=== PATIENT | female | born 1945 | race Caucasian/White ===

== ENCOUNTER 2017-08-05 09:05 | Day surgery (SDC) | payer MEDICARE, OTHER ==
[~2017-08-05 09:05] MED LIST: LACTATED RINGERS 1,000 ML IV SCH
[2017-08-05] MEDS ORDERED: LIDOCAINE 1% 20 ML VIAL (10MG/ML) FOR IV START INTRADERMA ONE (09:22)
[2017-08-05 09:31] VITALS: RESP 16; TEMP 97.3
[2017-08-05] MEDS ORDERED: PROPOFOL 10 MG/ML 20 ML VIAL IV ONE (10:05)
--- NOTE | 2017-08-05 10:27 | P.PCN ---
Date of Procedure: 08/05/17 Procedure(s) Performed: BRIEF HISTORY: Patient is a 72-year-old pleasant white female, scheduled for an elective colonoscopy as a part of evaluation of intermittent rectal bleeding for the last few months duration. PROCEDURE PERFORMED: Colonoscopy with snare polypectomy. PREOPERATIVE DIAGNOSIS: Rectal bleeding of 6 months duration. IV sedation per Anesthesia. PROCEDURE: After informed consent was obtained, the patient, was brought into the endoscopy unit. IV sedation was administered by Anesthesia under continuous monitoring. Digital rectal examination was normal. Initially the Olympus CF- 160 flexible video colonoscope was then inserted in the rectum, gradually advanced into the cecum without any difficulty. Careful examination was performed as the scope was gradually being withdrawn. Ileocecal valve and the appendiceal orifice were visualized and appeared normal. Prep was excellent. Mucosa of the cecum, appeared normal. In the ascending colon there was a 1 cm broad-based polyp that was more by snare polypectomy. The rest of the ascending colon, transverse colon, descending colon, sigmoid colon, and rectum appeared normal. In the proximal rectum there was a 5-mm polyp removed by snare polypectomy. Scattered left-sided diverticulosis seen. Retroflexion was performed in the rectum and small internal hemorrhoids were seen. The patient tolerated the procedure well. IMPRESSION: 1 cm broad-based ascending colon polyp status post snare polypectomy 5 to proximal rectal polyp status post polypectomy Scattered sigmoid diverticulosis Small internal hemorrhoids RECOMMENDATIONS: Findings of this examination were discussed with the patient as well as her family. She was advised to be on a high-fiber diet. Fiber supplements on a regular basis. She will follow with the biopsy results. If the biopsy shows a tubular adenoma she can have a repeat coloscopy in 3-5 years.
[2017-08-05 11:01] VITALS: BP 165/78; PULSE 63
== END 2017-08-05 11:20 | disposition home or self-care (01) ==
LOC: ORWHC2ENDO 09:05
PROVIDERS: ATTEND Internal Medicine Gastroenterology
DX: D12.2 Benign neoplasm of ascending colon (principal); K62.1 Rectal polyp; K57.30 Diverticulosis of large intestine without perforation or abscess without bleeding; K64.8 Other hemorrhoids; Z79.899 Other long term (current) drug therapy; I10 Essential (primary) hypertension; E78.5 Hyperlipidemia, unspecified; M46.90 Unspecified inflammatory spondylopathy, site unspecified; Z79.891 Long term (current) use of opiate analgesic; Z91.040 Latex allergy status; Z91.048 Other nonmedicinal substance allergy status
CPT/HCPCS: 88305; 45385; J2704

== ENCOUNTER → 2018-05-25 | Outpatient (CLI) | payer MEDICARE, OTHER ==
[2018-05-25 14:03] VITALS: BP 160/74; PULSE 70; RESP 16; TEMP 98.2; BMI 28.3
--- NOTE | 2018-05-25 15:35 | P.BASOAP ---
Subjective Progress Note Date: 05/25/18 Principal diagnosis: Left lower quadrant pain Patient on our service. Fashion had previous lap band placement. She has done quite well overall with her weight loss post-banding. Patient has 10.5 mL in her band. Patient was last evaluated for her lap band in March 2014. She has excellent loss a small amount of weight since that time. She has a history of intermittent left lower quadrant pain. Seems to be increasing in frequency and severity. Looking back at my notes from 2013 she did describe some of that pain at that time. She has had no real significant workup. Denies fevers. No nausea or vomiting. Normal bowel habits. Recent colonoscopy by Dr. Baron was normal. No rectal bleeding or melena. No recent labs. Objective - Vital Signs Vital signs: Vital Signs Temp 98.2 F 05/25/18 13:59 Pulse 70 05/25/18 13:59 Resp 16 05/25/18 13:59 BP 160/74 05/25/18 13:59 Pulse Ox Intake & Output 05/24/18 05/25/18 05/25/18 18:59 06:59 18:59 Weight 70.307 kg - Exam Abdomen: Soft, mild left lower quadrant tenderness, no palpable hernia Assessment/Plan (1) Left lower quadrant abdominal pain of unknown etiology Narrative/Plan: Will check CAT scan and pelvis at this time. Patient's pain may be on the basis of scarring related to her previous panniculectomy. Further recommendations will follow. Keep band at 10.5 mL for now. Plan: Date: 05/25/18 Initial Weight: 122.47 kg Initial BMI: 49.4 Current Weight: 70.307 kg Current BMI: 28.3 Type of Surgery: Total Volume in Band: Previous Volume: Volume Removed: Volume Added: Band Size:
== END ==
LOC: BARWHC3 13:42
PROVIDERS: ATTEND Surgery
DX: R10.32 Left lower quadrant pain (principal); Z98.84 Bariatric surgery status
CPT/HCPCS: 99211

== ENCOUNTER → 2018-06-09 | Outpatient (CLI) | payer MEDICARE, OTHER ==
--- NOTE | 2018-06-11 07:52 | CT ---
EXAMINATION TYPE: CT abdomen pelvis w con DATE OF EXAM: 06/09/2018 COMPARISON: INDICATION: Left side abdominal pain DLP: 1022 mGycm, Automated exposure control for dose reduction was used. CONTRAST: 100 mL of Isovue 300. Study performed with Oral Contrast TECHNIQUE: Axial images were obtained from above the diaphragm to the pubic rami in the axial plane a t 5 mm thick sections. Reconstructed images are reviewed on the computer in the coronal plane. FINDINGS: Limited CT sections are obtained the lung bases. The lung bases are clear. CT ABDOMEN: LAP-BAND is present. Liver: Normal Spleen: Ill-defined hypodensities within the mid portion of the spleen. This is ill-defined and is es timated to measure 3 cm. This is not a typical simple cyst. Hypodensity in this area appears persiste nt on delayed images. Consider ultrasound for comparison. Pancreas: Normal Adrenal glands: There is some mild thickening of the left adrenal gland measuring 1.2 cm. The right a drenal gland appears normal. Gallbladder: Normal Kidneys: No masses are evident. No hydronephrosis is present. No cysts are present. Delayed images were obtained through the kidneys, which remain unremarkable. Aorta: Vascular calcification is within the aorta. Inferior vena cava: Normal. CT PELVIS: Loops of bowel within the abdomen and pelvis are normal. There are loops of bowel which are incom pletely distended or lack oral contrast limiting their evaluation. 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 Appendix: Normal as visualized. Urinary bladder: Normal. Genitourinary structures: Uterus is normal. Adnexal regions are clear. Osseous structures: No suspicious lytic or sclerotic lesions. Facet degenerative changes are within t he lower lumbar spine. IMPRESSIONS: 1. Ill-defined hypodensity within the liver which is nonspecific. Large complex hemangioma could be considered. However, and there is incomplete opacification with contrast. Consider additional evaluat ion with ultrasound of the abdomen. 2. Fusiform prominence mid abdominal aorta measuring 3.4 cm.
== END | disposition home or self-care (01) ==
LOC: RADCTMAIN 13:56
PROVIDERS: ATTEND Surgery
DX: R93.2 Abnormal findings on diagnostic imaging of liver and biliary tract (principal); R10.32 Left lower quadrant pain
CPT/HCPCS: 82565; 84520; 74177; 36415; Q9967

== ENCOUNTER → 2018-07-08 | Outpatient (CLI) | payer MEDICARE, OTHER ==
--- NOTE | 2018-07-08 13:13 | US ---
EXAMINATION TYPE: US abdomen limited DATE OF EXAM: 07/08/2018 COMPARISON: Correlation CT 06/09/2018 CLINICAL HISTORY: 73-year-old female D73.89 Spleen Lesion. LUQ pain, splenic lesion visualized on rec ent CT TECHNIQUE: Multiple sonographic images of the left upper quadrant are obtained. FINDINGS: EXAM MEASUREMENTS: Spleen: 10.7cm Left Kidney: 9.9 x 5.2 x 4.9 1. Spleen: heterogeneous isoechoic lesion = 4.1 x 3.6 x 4.2cm . There may be some posterior through t ransmission. 2. Left Kidney: no evidence of hydronephrosis IMPRESSION: 1. 4.2 cm round heterogeneous lesion of the spleen as seen on CT. Given subtle posterior through painting smission and heterogeneity on CT, a hemangioma is possible. 2. Consider 3-6 month follow-up CT to reassess.
== END | disposition home or self-care (01) ==
LOC: RADUSWWP 09:19
PROVIDERS: ATTEND Surgery
DX: D73.89 Other diseases of spleen (principal)
CPT/HCPCS: 76705

== ENCOUNTER → 2020-08-28 | Outpatient (CLI) | payer MEDICARE, OTHER ==
[2020-08-28 15:41] VITALS: BP 148/83; PULSE 75; RESP 16; TEMP 98.1; BMI 32.7
--- NOTE | 2020-08-28 16:28 | P.BASOAP ---
Subjective Progress Note Date: 08/28/20 Principal diagnosis: Morbid obesity Patient returns to the bariatric clinic for evaluation. Last seen May 2018. At that time was having left lower quadrant pain. She had a CAT scan and an ultrasound showing no definite etiology for her pain. She did have a 4.2 cm liver lesion that was thought to represent probable hemangioma. 3-6 month follow-up CAT scan was advised. Says her left lower quadrant pain has resolved. She thinks it may have been related to constipation. Since last visit patient has gained 20 pounds. No heartburn. Patient requesting a fill. States that previously she was unable to drink while eating but now she is able to. No dysphagia or vomiting. No reflux. Objective - Vital Signs Vital signs: Vital Signs Temp 98.1 F 08/28/20 15:37 Pulse 75 08/28/20 15:37 Resp 16 08/28/20 15:37 BP 148/83 08/28/20 15:37 Pulse Ox Intake & Output 08/27/20 08/28/20 08/28/20 18:59 06:59 18:59 Weight 81.193 kg - Exam Abdomen: Soft, nontender, nondistended Assessment/Plan (1) Morbid obesity Narrative/Plan: Patient requesting a lap band adjustment. Patient has 10.5 mL in the band currently. Her band was accessed sterilely. Most of the fluid is present. 0.5 mL added for a total of 11 mL. Patient tolerated liquids without difficulty following the adjustment. We'll try to see if the patient ever had her follow- up CAT scan performed. Plan: Date: 08/28/20 Initial Weight: 122.47 kg Initial BMI: 49.4 Current Weight: 81.193 kg Current BMI: 32.7 Type of Surgery: Total Volume in Band: Previous Volume: Volume Removed: Volume Added: Band Size:
== END ==
LOC: BARWHC3 15:08
PROVIDERS: ATTEND Surgery
DX: Z46.51 Encounter for fitting and adjustment of gastric lap band (principal); E66.01 Morbid (severe) obesity due to excess calories; F17.200 Nicotine dependence, unspecified, uncomplicated; Z68.32 Body mass index [BMI] 32.0-32.9, adult; Z98.84 Bariatric surgery status
CPT/HCPCS: 99212

== ENCOUNTER → 2020-09-13 | Outpatient (CLI) | payer MEDICARE, OTHER ==
[2020-09-13 12:49] LABS: African American GFR (CKD) >90 (>60 ml/min/1.73 sqM); Blood Urea Nitrogen 14 mg/dL (7-17); Non-African American GFR(CKD) 84 (>60 ml/min/1.73 sqM)
--- NOTE | 2020-09-13 14:45 | CT ---
EXAMINATION TYPE: CT abdomen pelvis w con DATE OF EXAM: 09/13/2020 HISTORY: Liver mass, prior abn CT CT DLP: 1196mGycm Automated Exposure Control for Dose Reduction was Utilized. CONTRAST: CT scan of the abdomen and pelvis is performed with IV Contrast, patient injected with 100 mL of Isov ue 300. COMPARISON: CT abdomen and pelvis June 09, 2018. Limited abdominal ultrasound July 08, 2018 FINDINGS: LUNG BASES: Calcification level of mitral valve redemonstrated LIVER/GB: Persistent subcentimeter lesion left hepatic lobe series 3 image 16, too small to further c haracterize presumed benign. PANCREAS: No significant abnormality is seen. SPLEEN: Persistent heterogeneous poorly defined slightly hypodense roughly 3.5 cm lesion in the splee n not significantly changed in size or appearance from CT 27 months earlier, etiology uncertain but l ack of significant growth makes benign etiology strongly favored. No significant change on delayed ph ase images. ADRENALS: Stable slight asymmetric thickening left adrenal gland favors benign hyperplasia. KIDNEYS: Symmetric cortical medullary uptake and excretion without hydronephrosis seen bilaterally. BOWEL: Oral contrast reaches level of the cecum. No suspicious small or large bowel dilatation. LAP-B AND device redemonstrated and stable in position just below diaphragm, slightly diminished phi angle noted from prior CT. Diverticula in the left and sigmoid colon redemonstrated. No CT evidence for acu te diverticulitis. UTERUS/ADNEXA: Anteverted uterus. LYMPH NODES: No greater than 1cm abdominal or pelvic lymph nodes are appreciated. OSSEOUS STRUCTURES: Moderate axial joint space loss in both hips with mild to moderate acetabular spu rring. OTHER: Moderate to borderline severe calcified plaque of the aorta extends into branch vessels. No gr eater than 3.0 cm AAA IMPRESSION: As above. No new or acute findings evident.
== END | disposition home or self-care (01) ==
LOC: RADCTMAIN 12:04
PROVIDERS: ATTEND Surgery
DX: K76.89 Other specified diseases of liver (principal)
CPT/HCPCS: 82565; 84520; 74177; 36415; Q9967

== ENCOUNTER 2020-10-01 08:58 | Day surgery (SDC) | payer MEDICARE, OTHER ==
[2020-09-24 15:31] VITALS: BMI 32.9
[~2020-10-01 08:58] MED LIST changes: +ALPRAZolam 0.25 MG TAB PO PRN; +ALPRAZolam 0.5 MG TAB PO PRN; +ASPIRIN 325 MG TAB PO STA; +ATORVASTATIN 80 MG TAB PO STA; +HEPARIN SODIUM,PORCINE 10,000 UNIT in SODIUM CHLORIDE 0.9% 1,000 ML IRRIGATION PRN; +HEPARIN SODIUM,PORCINE 2,500 UNIT in SODIUM CHLORIDE 0.9% 250 ML IRRIGATION PRN; -LACTATED RINGERS 1,000 ML IV SCH; +NITROGLYCERIN SL TABS 0.4 MG TAB SUBLINGUAL PRN; +SODIUM CHLORIDE 0.9% 1,000 ML in EMPTY BAG 1 BAG IV ONE
[2020-10-01 09:29] VITALS: RESP 16
[2020-10-01 09:48] LABS: Basophils # (A) 0.1 k/uL (0-0.2); Basophils % (A) 1 %; Eosinophils # (A) 0.3 k/uL (0-0.7); Eosinophils % (A) 3 %; HCT 42.2 % (34.0-46.0); Lymphocytes % (A) 19 %; MCH 30.2 pg (25.0-35.0); MCV 91.4 fL (80.0-100.0); Mean Platelet Volume 6.2; Monocytes # (A) 0.5 k/uL (0-1.0); Monocytes % (A) 5 %; Neutrophils # (A) 7.4 k/uL (1.3-7.7); Neutrophils % (A) 71 %; Platelet Count 310 k/uL (150-450); RBC 4.62 m/uL (3.80-5.40); RDW 13.9 % (11.5-15.5); WBC 10.4 k/uL (3.8-10.6)
[2020-10-01 09:59] LABS: African American GFR (CKD) >90 (>60 ml/min/1.73 sqM); Anion Gap 8 mmol/L; Blood Urea Nitrogen 15 mg/dL (7-17); Calcium 9.6 mg/dL (8.4-10.2); Carbon Dioxide 23 mmol/L (22-30); Chloride 109 mmol/L (98-107); Glucose 108 mg/dL (74-99); Non-African American GFR(CKD) 89 (>60 ml/min/1.73 sqM); Sodium 140 mmol/L (137-145)
[2020-10-01 10:03] LABS: Potassium 5.2 mmol/L (3.5-5.1)
[2020-10-01] MEDS ORDERED: VERAPAMIL 2.5 MG/ML 2 ML AMP ONE (12:04)
[2020-10-01] MEDS ORDERED: LIDOCAINE 1% INJ 10MG/ML (20 ML MDV) ONE (12:04)
[2020-10-01] MEDS ORDERED: MIDAZOLAM 2 MG/2 ML VIAL IV ONE (12:16)
[2020-10-01] MEDS ORDERED: LIDOCAINE 1% INJ 10MG/ML (20 ML MDV) SQ ONE (12:17)
[2020-10-01] MEDS ORDERED: VERAPAMIL SYRINGE (5 MG/10 ML) INTRAARTER ONE (12:20)
[2020-10-01] MEDS ORDERED: HYDROmorphone 1 MG/ML 1 ML SYRINGE ONE (12:21)
[2020-10-01] MEDS: HEPARIN SODIUM 1,000 UN/ML (10ML VL) IV ONE ×2 (12:25→12:32)
[2020-10-01] MEDS ORDERED: HYDROmorphone 1 MG/ML 1 ML SYRINGE IVP ONE (12:25)
[2020-10-01] MEDS ORDERED: CLOPIDOGREL 75 MG TAB ONE (12:29)
[2020-10-01] MEDS ORDERED: CLOPIDOGREL 75 MG TAB PO ONE (12:32)
[2020-10-01] MEDS ORDERED: IOPAMIDOL-370 125ML BTL INJ ONE ×2 (12:37→12:45)
[2020-10-01] MEDS ORDERED: NITROGLYCERIN 1000MCG/10ML SYRINGE INTRACORON ONE (12:38)
[2020-10-01] MEDS ORDERED: HYDROcodone/APAP 7.5-325MG 1 EACH TAB PO PRN (12:51)
[2020-10-01] MEDS ORDERED: MAG HYDROX/AL HYDROX/SIMETH 30 ML CUP PO PRN (12:52)
[2020-10-01] MEDS ORDERED: NITROGLYCERIN SL TABS 0.4 MG TAB SUBLINGUAL PRN (12:52)
[2020-10-01] MEDS ORDERED: RX INFO: IV CONTRAST WAS GIVEN 1 EACH MISC MISCELLANE PRN (12:52)
[2020-10-01] MEDS ORDERED: ZOLPIDEM 5 MG TAB PO PRN (12:52)
[2020-10-01] MEDS ORDERED: ATROPINE SULFATE 0.1 MG/ML 10ML SYRINGE IV PRN (12:52)
[2020-10-01] MEDS ORDERED: SODIUM CHLORIDE 0.9% 1,000 ML IV SCH (13:00)
--- NOTE | 2020-10-01 18:49 | CC ---
CARDIAC CATHETERIZATION REPORT DATE OF SERVICE: 10/01/2020 PERFORMING PHYSICIAN: Jonathon Whalen M.D. PROCEDURES PERFORMED: 1. Selective right and left coronary angiogram. 2. Left heart catheterization. 3. Successful stenting of the mid right coronary artery using a 4.0 x 15 mm Xience drug-eluting stent which was post-dilated using a 4.5 mm balloon with excellent angiographic results and reduction of stenosis from 99.9% to 0%. INDICATION: This is a 75-year-old female patient with a past medical history significant for hypertension and dyslipidemia who was experiencing symptoms of chest discomfort and underwent a myocardial perfusion imaging stress test. That showed reversibility. Because of that, heart catheterization was advised. APPROACH: Right radial artery. COMPLICATIONS: None. LEVEL OF SEDATION: Moderate, with sedation length of 30 minutes. PROCEDURE DESCRIPTION: After obtaining informed consent, the patient was brought to the cardiac lab manager. The right radial artery was cannulated using micropuncture technique. The micropuncture wire passed easily. Then I placed a 6-Tamazight sheath at the right radial artery. Subsequently I did give the patient 2 mg of verapamil IA and 6000 units of heparin IV. Selective right and left coronary angiogram was performed using JR4 and JL3.5 catheters. Left heart catheterization was performed using the JR4 catheter, which crossed the aortic valve. Then I did pull back across the valve. The procedure was completed without any complication. After that I did intervene on the RCA. Please see separate paragraph for that. SELECTIVE CORONARY ANGIOGRAM: 1. The RCA is a large-caliber vessel. It is a dominant vessel. The mid RCA has eccentric lesion that appeared to be in the range of 99.9%. The RCA proximally and distally appeared to be angiographically normal. 2. The left main is angiographically normal. It bifurcates into LCX and LAD. 3. The LCX is a large-caliber vessel. The mid left circumflex has a lesion that appeared to be in the range of 30% to 40%. 4. The LAD. The proximal LAD has mild disease only. The mid LAD has a tubular lesion that appeared to be in the range of 40%. The LAD distally appeared to be angiographically normal. The LAD gives rise to a large diagonal branch which seems to have mild disease only. 5. HEMODYNAMICS: The LVEDP was about 10 to 12 mmHg without significant gradient across the aortic valve. CONCLUSION: 1. Critical single-vessel coronary artery disease involving the mid RCA with an eccentric lesion. 2. Mild to moderate nonobstructive disease involving the left coronary system. 3. Normal LVEDP. 4. Successful stenting of the mid RCA using a 4.0 x 15 mm Xience SHANEKA with excellent angiographic results and reduction of stenosis from 99% to 0%. POST-PROCEDURE MANAGEMENT: 1. Dual anti-platelet therapy. 2. Risk factor modifications. 3. Follow up with the patient. MMADRIAN / IJN: [id number] /
--- NOTE | 2020-10-01 19:40 | LTR ---
October 01, 2020 To: Dr. Flores Re: Leonidas Ellis (49) Dear Dr. Flores, Ms. Leonidas Ellis was seen in the office recently for symptoms of chest discomfort along with an abnormal myocardial perfusion imaging stress test. Because of that, heart catheterization was advised. The heart catheterization revealed critical mid RCA lesion. I did successful stenting of the mid RCA with good angiographic results and without any complication. Thank you for allowing me to participate in her care. Please do not hesitate to call if you have any question or concern. Sincerely, Jonathon Whalen M.D. WES / COOKIE: [id number] /
[2020-10-02 06:05] LABS: Basophils # (A) 0.1 k/uL (0-0.2); Basophils % (A) 1 %; Eosinophils # (A) 0.3 k/uL (0-0.7); Eosinophils % (A) 3 %; HCT 38.2 % (34.0-46.0); HGB 12.7 gm/dL (11.4-16.0); Lymphocytes # (A) 2.1 k/uL (1.0-4.8); Lymphocytes % (A) 25 %; MCH 30.6 pg (25.0-35.0); MCHC 33.4 g/dL (31.0-37.0); MCV 91.7 fL (80.0-100.0); Mean Platelet Volume 6.4; Monocytes # (A) 0.4 k/uL (0-1.0); Monocytes % (A) 5 %; Neutrophils # (A) 5.5 k/uL (1.3-7.7); Neutrophils % (A) 64 %; Platelet Count 256 k/uL (150-450); RBC 4.17 m/uL (3.80-5.40); RDW 13.9 % (11.5-15.5); WBC 8.5 k/uL (3.8-10.6)
[2020-10-02 06:20] LABS: African American GFR (CKD) >90 (>60 ml/min/1.73 sqM); Anion Gap 4 mmol/L; Blood Urea Nitrogen 14 mg/dL (7-17); Carbon Dioxide 26 mmol/L (22-30); Chloride 111 mmol/L (98-107); Glucose 110 mg/dL (74-99); Non-African American GFR(CKD) 88 (>60 ml/min/1.73 sqM); Sodium 141 mmol/L (137-145)
[2020-10-02 08:24] VITALS: BP 160/80; PULSE 58; TEMP 97.9
[2020-10-02] MEDS ORDERED: ASPIRIN 81 MG PO SCH (09:00)
[2020-10-02] MEDS ORDERED: METOPROLOL SUCCINATE (ER) 25 MG TAB.ER.24H PO SCH (09:00)
[2020-10-02] MEDS ORDERED: MULTIVITAMINS, THERA 1 EACH TAB PO SCH (09:00)
[2020-10-02] MEDS ORDERED: CLOPIDOGREL 75 MG TAB PO SCH (09:00)
[2020-10-02] MEDS ORDERED: SPIRONOLACTONE 25 MG TAB PO SCH (09:00)
[2020-10-02] MEDS ORDERED: ZINC SULFATE 220 MG CAP PO SCH (09:00)
[2020-10-02] MEDS ORDERED: CALCIUM CARB-VIT D 500 MG-5 MCG TAB PO SCH (09:00)
--- NOTE | 2020-10-02 09:29 | DS ---
DISCHARGE SUMMARY ADMISSION DATE: October 01, 2020. DISCHARGE DATE: October 02, 2020. BRIEF HISTORY: This is a pleasant 75-year-old female patient who was experiencing symptoms of chest discomfort and underwent myocardial perfusion imaging stress test and that revealed critical disease involving the mid right coronary artery. She underwent successful stenting of the mid RCA with good angiographic results and without any complication from right radial approach. The patient was seen this morning. She is asymptomatic. The right radial site is soft and nontender and without any bruises. The patient is going to be discharged home on dual anti-platelet therapy and I will follow up with the patient next week in the office. MMODL / IJN: [id number] /
[2020-10-02] MEDS ORDERED: ATORVASTATIN 20 MG TAB PO SCH (21:00)
[2020-10-03] MEDS ORDERED: CLOPIDOGREL 75 MG TAB PO SCH (09:00)
== END 2020-10-02 09:38 | disposition home or self-care (01) ==
LOC: CATHCVL 08:58 → 6NMEDSUR 13:04 → CATHCVL 10-02 09:38
PROVIDERS: ATTEND Internal Medicine Interventional Cardiology
DX: I25.110 Atherosclerotic heart disease of native coronary artery with unstable angina pectoris (principal); I10 Essential (primary) hypertension; E78.00 Pure hypercholesterolemia, unspecified; R94.39 Abnormal result of other cardiovascular function study; Z20.822 Contact with and (suspected) exposure to COVID-19; E78.5 Hyperlipidemia, unspecified; F17.200 Nicotine dependence, unspecified, uncomplicated; Z79.82 Long term (current) use of aspirin; Z79.899 Other long term (current) drug therapy
CPT/HCPCS: 94760; 93458; 80048 ×2; 84132; 85025 ×2; 87635; C9600; C1769 ×2; C1887; C1725; C1874; J2250; J2001; J1644; J1170; Q9967

== ENCOUNTER → 2021-04-09 | Outpatient (CLI) | payer MEDICARE, OTHER ==
[2021-04-09 20:30] LABS: ALT 19 U/L (8-44); AST 22 U/L (13-35); Chol/HDL Ratio 4.29 Ratio; LDL Cholesterol,Calculated 104.6 mg/dL (0.0-131.0)
== END | disposition home or self-care (01) ==
LOC: LABWHC1 10:46
PROVIDERS: ATTEND Family Medicine
DX: E78.2 Mixed hyperlipidemia (principal)
CPT/HCPCS: 36415; 80061; 84450; 84460

== ENCOUNTER 2022-04-26 23:11 | Emergency (ER) | payer MEDICARE, OTHER ==
[2022-04-26 23:22] VITALS: TEMP 98.8
[2022-04-27] MEDS ORDERED: SODIUM CHLORIDE 0.9% 1,000 ML IV STA (00:21)
--- NOTE | 2022-04-27 00:57 | XR ---
EXAMINATION TYPE: XR chest 2V DATE OF EXAM: 04/27/2022 COMPARISON: NONE HISTORY: Palpitations TECHNIQUE: 2 views FINDINGS: There is no heart failure no confluent pneumonic infiltrate. Costophrenic angles are clear. There are no hilar masses. There are chest leads. Bony thorax is intact. The pulmonary vascularity i s normal. IMPRESSION: No active cardiopulmonary disease.
[2022-04-27 02:03] LABS: ALT 24 U/L (4-34); AST 27 U/L (14-36); African American GFR (CKD) 71 (>60 ml/min/1.73 sqM); Alkaline Phosphatase 94 U/L (38-126); Anion Gap 8 mmol/L; Blood Urea Nitrogen 24 mg/dL (7-17); Calcium 9.1 mg/dL (8.4-10.2); Carbon Dioxide 22 mmol/L (22-30); Chloride 109 mmol/L (98-107); Glucose 130 mg/dL (74-99); Magnesium 1.7 mg/dL (1.6-2.3); Non-African American GFR(CKD) 61 (>60 ml/min/1.73 sqM); Sodium 139 mmol/L (137-145); Total Bilirubin 0.2 mg/dL (0.2-1.3); Total Protein 6.5 g/dL (6.3-8.2)
[2022-04-27 02:04] LABS: Basophils # (A) 0.1 k/uL (0-0.2); Basophils % (A) 1 %; Eosinophils # (A) 0.3 k/uL (0-0.7); Eosinophils % (A) 2 %; HCT 41.8 % (34.0-46.0); HGB 13.8 gm/dL (11.4-16.0); Lymphocytes # (A) 2.4 k/uL (1.0-4.8); Lymphocytes % (A) 17 %; MCH 30.9 pg (25.0-35.0); MCHC 33.2 g/dL (31.0-37.0); MCV 93.1 fL (80.0-100.0); Mean Platelet Volume 7.3; Monocytes # (A) 0.7 k/uL (0-1.0); Monocytes % (A) 5 %; Neutrophils # (A) 10.9 k/uL (1.3-7.7); Neutrophils % (A) 75 %; Platelet Count 305 k/uL (150-450); RBC 4.48 m/uL (3.80-5.40); RDW 14.2 % (11.5-15.5); WBC 14.6 k/uL (3.8-10.6)
--- NOTE | 2022-04-27 02:12 | ED ---
Chest Pain HPI - General Chief Complaint: Chest Pain Stated Complaint: Shortness of Breath, Palpitations Time Seen by Provider: 04/26/22 23:25 Source: patient Mode of arrival: ambulatory - History of Present Illness Initial Comments: 76-year-old female with past medical history of hypertension, hyperlipidemia, coronary artery disease with one stent who presents to the emergency department with reported up with palpitations. States that she was at home sitting on the couch when she had sudden onset of palpitations. States that she felt a tavares in her chest and was short of breath. She denies having chest pain. Symptoms lasted for approximately 10 minutes. States that by the time she got in the car her symptoms were gone. She does have a cardiac history. She had a heart cath last year and had stenting of the mid RCA. She denies history of DVT or PE. No fevers, chills or cough. She does not take any medications in order to alleviate her symptoms. She denies having nausea, vomiting or diaphoresis. No other alleviating, precipitating or modifying factors - Related Data Home Medications Medication Instructions Recorded Confirmed Atorvastatin [Lipitor] 20 mg PO HS 04/04/15 10/01/20 Multivitamins, Thera [Multivitamin 1 tab PO DAILY 04/04/15 10/01/20 (formulary)] Spironolactone [Aldactone] 25 mg PO QAM 04/04/15 10/01/20 Aspirin [Adult Low Dose Aspirin EC] 81 mg PO DAILY 09/24/20 10/01/20 Calcium Crb,Cit/D3/Min34/Antonio 1 each PO DAILY 09/24/20 10/01/20 [Citracal Plus Bone Density Tab] Zinc 50 mg PO DAILY 09/24/20 10/01/20 HYDROcodone/APAP 7.5-325MG [[place] 1 tab PO Q4H PRN 10/01/20 10/01/20 7.5-325] Previous Rx's Medication Instructions Recorded Clopidogrel [Plavix] 75 mg PO DAILY #90 tab 10/02/20 Allergies Allergy/AdvReac Type Severity Reaction Status Date / Time latex Allergy Rash/Hives Verified 04/26/22 23:22 nickel Allergy Rash/Hives Verified 04/26/22 23:22 Review of Systems ROS Statement: Those systems with pertinent positive or pertinent negative responses have been documented in the HPI. ROS Other: All systems not noted in ROS Statement are negative. EKG Findings - EKG Comments: EKG Findings:: EKG demonstrates sinus rhythm rate of 92. DE interval 170. QRS 88. QTC of 402. No acute ST segment elevations or depressions. EKG was interpreted by myself Past Medical History Past Medical History: Hyperlipidemia, Hypertension, Musculoskeletal Disorder Additional Past Medical History / Comment(s): Chronic back pain. Right knee degenerative arthritis. WOUND INFECTION FROM PANNICULECTOMY IN 2016. History of Any Multi-Drug Resistant Organisms: None Reported Past Surgical History: Bariatric Surgery, Orthopedic Surgery Additional Past Surgical History / Comment(s): Lap band. Left knee replacement. Bilateral carpal tunnel. Panniculectomy 10/31/15 Past Anesthesia/Blood Transfusion Reactions: No Reported Reaction Past Psychological History: No Psychological Hx Reported Smoking Status: Current every day smoker Past Alcohol Use History: Rare Past Drug Use History: None Reported - Past Family History Mother Additional Family Medical History / Comment(s): breast cancer General Exam General appearance: alert, in no apparent distress Head exam: Present: atraumatic, normocephalic, normal inspection Eye exam: Present: normal appearance, PERRL, EOMI. Absent: scleral icterus, conjunctival injection, periorbital swelling ENT exam: Present: normal exam, mucous membranes moist Neck exam: Present: normal inspection. Absent: tenderness, meningismus, lymphadenopathy Respiratory exam: Present: normal lung sounds bilaterally. Absent: respiratory distress, wheezes, rales, rhonchi, stridor Cardiovascular Exam: Present: regular rate, normal rhythm, normal heart sounds. Absent: systolic murmur, diastolic murmur, rubs, gallop, clicks GI/Abdominal exam: Present: soft, normal bowel sounds. Absent: distended, tenderness, guarding, rebound, rigid Extremities exam: Present: normal inspection, full ROM, normal capillary refill. Absent: tenderness, pedal edema, joint swelling, calf tenderness Back exam: Present: normal inspection Neurological exam: Present: alert, oriented X3, CN II-XII intact Psychiatric exam: Present: normal affect, normal mood Skin exam: Present: warm, dry, intact, normal color. Absent: rash Course Vital Signs 04/26/22 04/27/22 23:19 02:31 Temperature 98.8 F Pulse Rate 90 74 Respiratory 18 15 Rate Blood Pressure 167/84 149/88 O2 Sat by Pulse 97 100 Oximetry Chest Pain MDM - MDM On arrival patient is placed into room 1. A thorough history and physical exam was performed. IV access is established and laboratory studies were conducted. 12 EKG was performed. Patient remains on continuous pulse ox and cardiac monitoring. Laboratory studies are reviewed. Troponin is negative. Patient has no signs of ectopy on bedside monitor. She is reevaluated. I did discuss the results of laboratory studies. Chest x-ray had also been performed which demonstrates no active cart a primary disease. I did recommend admission to whoever patient is adamant that she wants to go home at this time. Informed her of the risks and benefits of leaving to include incomplete cardiac workup at this time. Patient is aware. States that she would prefer to follow-up with her open claims representative. I informed her that she needs to return for any new or worsening symptoms. Patient agreeable to treatment plan she was discharged home in stable condition Disposition Clinical Impression: Palpitations Disposition: HOME SELF-CARE Condition: Stable Instructions (If sedation given, give patient instructions): Heart Palpitations (ED) Additional Instructions: Please follow-up with your primary care doctor in 2-4 days and return for any new or worsening symptoms, especially if you have chest pain Is patient prescribed a controlled substance at d/c from ED?: No Referrals: Louis Flores MD [Primary Care Provider] - 1-2 days Time of Disposition: 02:28
[2022-04-27 02:15] LABS: INR 0.9 (<1.2); Partial Thromboplastin Time 24.7 sec (22.0-30.0); Prothrombin Time 9.4 sec (9.0-12.0)
[2022-04-27 02:32] VITALS: BP 149/88; PULSE 74; RESP 15
== END 2022-04-27 02:37 | disposition home or self-care (01) ==
LOC: EC 23:11
DX: R00.2 Palpitations (principal); I10 Essential (primary) hypertension; E78.5 Hyperlipidemia, unspecified; I25.10 Atherosclerotic heart disease of native coronary artery without angina pectoris; F17.200 Nicotine dependence, unspecified, uncomplicated; Z79.82 Long term (current) use of aspirin; Z79.899 Other long term (current) drug therapy; Z91.040 Latex allergy status
CPT/HCPCS: 36415; 71046; 80053; 83735; 84443; 84484; 85025; 85610; 85730; 93005; 99285

== ENCOUNTER → 2022-06-13 | Outpatient (CLI) | payer MEDICARE, OTHER ==
--- NOTE | 2022-06-15 20:09 | MR ---
EXAMINATION TYPE: MR foot RT wo con DATE OF EXAM: 06/13/2022 COMPARISON: None. HISTORY: Severe Rt Foot pain, swelling with limited movement, no known injury X several months Standard multiplanar, multisequence MRI departmental protocol Multiplanar, multisequence images of the right foot were acquired without contrast. Diffusion weighte d imaging was performed. FINDINGS: Distal Achilles tendon intact. Plantar fascia appears within normal limits. There is a smal l to moderate-sized inferior calcaneal spur noted. Normal sinus tarsi fat is seen. Ankle mortise symm etry is maintained. Midfoot structures show areas of narrowing with subchondral cystic change at the base of fourth metat arsal articulation with the cuboid bone as well as at the additional base of the second and third met atarsals as they articulate with the lateral and middle cuneiforms. There is narrowing with areas of diminished T1 and increased T2 signal involving navicular bone as articulates with the medial and mid dle cuneiform. The Christianson's toe is seen. There is flexion in the distal second through fifth toes. There is varus po sitioning of the distal fifth toe. No concerning solid or cystic mass or abnormal fluid collection is seen. There is mild subcutaneous e renuka along the dorsal surface extending laterally at mid foot level. 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
== END | disposition home or self-care (01) ==
LOC: RADMRIMAIN 16:19
PROVIDERS: ATTEND Nurse Practitioner
DX: M12.871 Other specific arthropathies, not elsewhere classified, right ankle and foot (principal); M79.671 Pain in right foot

== ENCOUNTER → 2023-06-10 | Outpatient (CLI) | payer MEDICARE, OTHER | END | disposition home or self-care (01) | LOC: RADMAMWWP 15:52 | PROVIDERS: ATTEND Family Medicine | DX: Z12.31 Encounter for screening mammogram for malignant neoplasm of breast (principal) | CPT/HCPCS: 77063; 77067 ==

== ENCOUNTER 2023-10-01 05:36 | Day surgery (SDC) | payer MEDICARE, OTHER ==
[2023-10-01] MEDS ORDERED: NITROGLYCERIN SL TABS 0.4 MG TAB SUBLINGUAL PRN ×2 (05:49→08:50)
[2023-10-01] MEDS ORDERED: HEPARIN SODIUM,PORCINE 10,000 UNIT in SODIUM CHLORIDE 0.9% 1,000 ML IRRIGATION PRN (05:49)
[2023-10-01] MEDS ORDERED: HEPARIN SODIUM,PORCINE (1 ML) 2,500 UNIT in SODIUM CHLORIDE 0.9% 250 ML IRRIGATION PRN (05:49)
[2023-10-01] MEDS ORDERED: ALPRAZolam 0.25 MG TAB PO PRN (05:49)
[2023-10-01] MEDS: SODIUM CHLORIDE 0.9% 1,000 ML IV ONE (06:08)
[2023-10-01] MEDS: ALPRAZolam 0.5 MG TAB PO PRN (06:23)
[2023-10-01] MEDS: SODIUM CHLORIDE 0.9% 1,000 ML in EMPTY BAG 1 BAG IV SCH ×2 (06:23→13:48)
[2023-10-01] MEDS: ASPIRIN 325 MG TAB PO STA (06:23)
[2023-10-01 06:32] LABS: Basophils # (A) 0.1 k/uL (0-0.2); Basophils % (A) 1 %; Eosinophils # (A) 0.3 k/uL (0-0.7); Eosinophils % (A) 2 %; HCT 45.5 % (34.0-46.0); HGB 14.3 gm/dL (11.4-16.0); Lymphocytes # (A) 2.7 k/uL (1.0-4.8); Lymphocytes % (A) 22 %; MCH 30.5 pg (25.0-35.0); MCHC 31.5 g/dL (31.0-37.0); MCV 96.7 fL (80.0-100.0); Mean Platelet Volume 6.8; Monocytes # (A) 0.5 k/uL (0-1.0); Monocytes % (A) 4 %; Neutrophils # (A) 8.5 k/uL (1.3-7.7); Neutrophils % (A) 69 %; Platelet Count 307 k/uL (150-450); RBC 4.71 m/uL (3.80-5.40); RDW 14.1 % (11.5-15.5); WBC 12.3 k/uL (3.8-10.6)
[2023-10-01 06:41] LABS: African American GFR (CKD) >90 (>60 ml/min/1.73 sqM); Anion Gap 6 mmol/L; Blood Urea Nitrogen 25 mg/dL (7-17); Calcium 9.8 mg/dL (8.4-10.2); Carbon Dioxide 25 mmol/L (22-30); Chloride 107 mmol/L (98-107); Glucose 95 mg/dL (74-99); Non-African American GFR(CKD) 81 (>60 ml/min/1.73 sqM); Potassium 4.7 mmol/L (3.5-5.1); Sodium 138 mmol/L (137-145)
[2023-10-01] MEDS ORDERED: VERAPAMIL 2.5 MG/ML 2 ML AMP ONE (07:20)
[2023-10-01] MEDS ORDERED: LIDOCAINE 1% INJ 10MG/ML (20 ML MDV) ONE (07:20)
[2023-10-01] MEDS ORDERED: HEPARIN SODIUM 1,000 UN/ML (10ML VL) ONE (07:20)
[2023-10-01] MEDS ORDERED: fentaNYL (PF) 50 MCG/ML 2 ML AMP ONE (07:34)
[2023-10-01] MEDS: MIDAZOLAM 2 MG/2 ML VIAL IVP ONE ×2 (07:53→08:09)
[2023-10-01] MEDS: LIDOCAINE 1% INJ 10MG/ML (20 ML MDV) SQ ONE (07:53)
[2023-10-01] MEDS: VERAPAMIL SYRINGE (5 MG/10 ML) INTRAARTER ONE (07:54)
[2023-10-01] MEDS: fentaNYL (PF) 50 MCG/1 ML VIAL IVP ONE (07:55)
[2023-10-01] MEDS ORDERED: NITROGLYCERIN SL TABS 0.4 MG TAB SUBLINGUAL ONE (07:58)
[2023-10-01] MEDS: NITROGLYCERIN SL TABS 0.4 MG TAB SUBLINGUAL ONE (07:59)
[2023-10-01] MEDS ORDERED: TICAGRELOR 90 MG TAB ONE (08:18)
[2023-10-01] MEDS: TICAGRELOR 90 MG TAB PO ONE (08:20)
[2023-10-01] MEDS: IOPAMIDOL-370 100ML BTL INJ ONE ×2 (08:23→08:45)
[2023-10-01] MEDS: NITROGLYCERIN 1000MCG/10ML SYRINGE INTRACORON ONE (08:41)
[2023-10-01] MEDS ORDERED: ZOLPIDEM 5 MG TAB PO PRN (08:50)
[2023-10-01] MEDS ORDERED: RX INFO: IV CONTRAST WAS GIVEN 1 EACH MISC MISCELLANE PRN (08:50)
[2023-10-01] MEDS ORDERED: MAG HYDROX/AL HYDROX/SIMETH 30 ML CUP PO PRN (08:50)
[2023-10-01] MEDS ORDERED: ATROPINE SULFATE 0.1 MG/ML 10ML SYRINGE IV PRN (08:50)
--- NOTE | 2023-10-01 13:25 | P.PCN ---
Date of Procedure: 10/01/23 Operative Findings: Cardiac catheterization and percutaneous coronary intervention Performing physician Jonathon Whalen MD Procedure performed Selective right and left coronary angiogram Left heart catheterization Successful stenting of the proximal LAD using 3.5 x 28 mm Xience SHANEKA with an excellent angiographic results Adjunctive use of intravascular imaging and Doppler wire Ultrasound-guided access of the right radial artery Complications None Level of sedation Moderate with sedation length of 42 minutes Procedure description After obtaining an informed consent the patient was brought to the cardiac labor conciliator. The right radial artery was cannulated using a conquer technique under ultrasound guidance and the micro puncture wire passed easily in a place a 6 Kyrgyz 11 cm sheath at the right radial artery and gave the patient 2 mg of verapamil intra-arterial and 5000 units of heparin intravenous. Selective right and left coronary angiogram performed using JR4 and JL 3.5 catheters. Left heart catheterization was performed using 6 Kyrgyz pigtail catheter. After reviewing the angiogram we decided to do an IFR on the LAD. After zeroing the Doppler wire and equalizing between the Doppler wire and guiding catheter which was JL 3.5 guiding catheter the left main was engaged and the LAD was wired. Subsequently the Doppler wire was advanced to the distal LAD. The IFR came in to be ischemic 0.88 and 0.87 and 0.85. At that point I decided to intervene on the LAD. Intravascular ultrasound was performed and the catheter did not cross the lesion but went just proximal to the lesion which showed a diameter around 3.5-4 mm with an arch of calcifications about 180. Predilatation was performed using 3 mm score Flex balloon before I deployed a 3.5 x 28 mm stent and the stent subsequently was postdilated using 3.75 mm noncompliant balloon. Final angiogram showed excellent angiographic results and the procedure was completed with no complication Selective coronary angiogram The RCA is a stented and the stent is patent The left main appeared to have mild disease only The LCx is a large caliber vessel nondominant vessel with intermediate disease in the distal portion The LAD is a calcified vessel with intermediate to severe disease in the proximal portion documented to be flow-limiting by Doppler wire Hemodynamics The LVEDP was about 8 mmHg no significant gradient across the aortic valve Conclusion Patent stent in the RCA Intermediate disease involving the LCx Intermediate disease involving the LAD documented to be flow-limiting by Doppler wire. I performed successful stenting of the LAD Postprocedure management Dual antiplatelet therapy using aspirin and Brilinta for at least 6 months
[2023-10-01] MEDS: HYDROcodone/APAP 7.5-325MG 1 EACH TAB PO PRN (13:47)
[2023-10-01 15:07] VITALS: BMI 34.9
[2023-10-01] MEDS: TICAGRELOR 90 MG TAB PO SCH (21:24)
[2023-10-01] MEDS: ASPIRIN 81 MG PO SCH (21:24)
[2023-10-01] MEDS: ATORVASTATIN 80 MG TAB PO SCH (21:24)
--- NOTE | 2023-10-02 06:47 | P.DS ---
Providers Attending physician: Jonathon Whalen Consults: 10/01/23 08:50 Consult Physician Routine Consulting Provider: [facility] Consult Reason/Comments: Post Interventional Patient Do you want consulting provider notified?: Already Contacted Primary care physician: Lowell Lenz [facility] Course: The patient is a pleasant 78-year-old female patient with a past medical history significant for coronary artery disease who underwent yesterday heart catheterization. She is scheduled to undergo a heart catheterization because she was experiencing symptoms of shortness of breath and she underwent myocardial perfusion imaging stress that showed an anterior ischemia. Heart catheterization revealed intermediate disease involving the LAD documented to be flow-limiting by Doppler wire. Subsequently she underwent PCI of the LAD. She was seen and evaluated this morning. She is feeling better. She is asymptomatic. She is hemodynamically stable. Blood work from the morning still pending. Pending blood work the patient will be discharged home later on today and follow-up with Dr. Lenz as well as follow-up with me in the office in the next few weeks. The right radial artery is soft and nontender with no bruises. Plan - Discharge Summary Discharge Rx Participant: No New Discharge Prescriptions: New Ticagrelor [Brilinta] 90 mg PO BID #180 tab Continue Spironolactone [Aldactone] 25 mg PO QAM Atorvastatin [Lipitor] 80 mg PO HS Multivitamins, Thera [Multivitamin (formulary)] 1 tab PO DAILY Aspirin [Adult Low Dose Aspirin EC] 81 mg PO HS HYDROcodone/APAP 7.5-325MG [[place] 7.5-325] 1 tab PO Q4H PRN PRN Reason: Pain lisinopriL [Zestril] 5 mg PO DAILY Metoprolol Succinate (ER) [Toprol XL] 12.5 mg PO DAILY Nature's Bounty Calcium 1 tab PO DAILY Ergocalciferol [Vitamin D2 (1250 Mcg = 15934 Iu)] 1,250 mcg PO Q30D Discharge Medication List Atorvastatin [Lipitor] 80 mg PO HS 04/04/15 [History] Multivitamins, Thera [Multivitamin (formulary)] 1 tab PO DAILY 04/04/15 [History] Spironolactone [Aldactone] 25 mg PO QAM 04/04/15 [History] Aspirin [Adult Low Dose Aspirin EC] 81 mg PO HS 09/24/20 [History] HYDROcodone/APAP 7.5-325MG [[place] 7.5-325] 1 tab PO Q4H PRN 10/01/20 [History] Ergocalciferol [Vitamin D2 (1250 Mcg = 53035 Iu)] 1,250 mcg PO Q30D 09/30/23 [Hi story] Metoprolol Succinate (ER) [Toprol XL] 12.5 mg PO DAILY 09/30/23 [History] Nature's Bounty Calcium 1 tab PO DAILY 09/30/23 [History] lisinopriL [Zestril] 5 mg PO DAILY 09/30/23 [History] Ticagrelor [Brilinta] 90 mg PO BID #180 tab 10/02/23 [Rx] Follow up Appointment(s)/Referral(s): Jonathon Whalen MD [STAFF PHYSICIAN] - 10/14/23 4:30 pm Patient Instructions/Handouts: *[facility] - After Heart Catheterization - Hosiery Pairer Instructions, Moderate Sedation (DC), After Radial Heart Catheterization (GEN) Activity/Diet/Wound Care/Special Instructions: No driving for two days Ok to shower tomorrow (REMOVE AFTER 24 HOURS) but no baths, pools, lakes, doing dishes by hand for five days. Signs of infection IE: fever, rash, drainage from puncture site, swelling go to ER/doctor for immediate evaluation. Avoid using right wrist/hand to bend, flex, lift greater than 5 lbs for five days. For Heavy Bleeding of puncture site apply firm direct pressure and return to ER. Do not attempt to drive self. low sodium/low fat diet medications as directed by Cardiologists FALL PRECAUTIONS RELATED TO ANESTHESIA TODAY. MEDICATIONS DIRECTED BY
[2023-10-02] MEDS: METOPROLOL SUCCINATE (ER) 25 MG TAB.ER.24H PO SCH (07:47)
[2023-10-02] MEDS: lisinopriL 5 MG TAB PO SCH (07:47)
[2023-10-02] MEDS: SPIRONOLACTONE 25 MG TAB PO SCH (07:47)
[2023-10-02] MEDS: MULTIVITAMINS, THERA 1 EACH TAB PO SCH (07:48)
[2023-10-02] MEDS: CALCIUM CARB-VIT D 500 MG-5 MCG TAB PO SCH (07:48)
[2023-10-02 08:34] VITALS: BP 148/70; PULSE 57; RESP 16; TEMP 97.9
[2023-10-02 10:07] LABS: African American GFR (CKD) 81 (>60 ml/min/1.73 sqM); Non-African American GFR(CKD) 70 (>60 ml/min/1.73 sqM)
[2023-10-17] MEDS ORDERED: ERGOCALCIFEROL 1,250 MCG (50,000 IU) CAPSULE PO SCH (09:00)
== END 2023-10-02 10:49 | disposition home health service (06) ==
LOC: CATHCVL 05:36 → 3SCARD 08:45 → CATHCVL 10-02 10:49
PROVIDERS: ATTEND Internal Medicine Interventional Cardiology
DX: I25.10 Atherosclerotic heart disease of native coronary artery without angina pectoris (principal); Z79.02 Long term (current) use of antithrombotics/antiplatelets; Z79.82 Long term (current) use of aspirin; Z79.899 Other long term (current) drug therapy; Z95.5 Presence of coronary angioplasty implant and graft
CPT/HCPCS: 92978; 93458; 93799; 76937; 80048; 82565; 85025; C9600; C1887; C1769 ×3; C1894; C1753; C1874; C1725 ×2; J2250; J2001; J1644; Q9967; J3010; J2305

== ENCOUNTER 2024-01-28 09:30 | Day surgery (SDC) | payer MEDICARE, OTHER ==
[~2024-01-28 09:30] MED LIST changes: -ALPRAZolam 0.5 MG TAB PO PRN; +ASPIRIN 325 MG TAB PO PRN; -ASPIRIN 325 MG TAB PO STA; -ATORVASTATIN 80 MG TAB PO STA; +EMPTY BAG 1 BAG with SODIUM CHLORIDE 0.9% 1,000 ML IV SCH; +HEPARIN SODIUM,PORCINE (1 ML) 2,500 UNIT in SODIUM CHLORIDE 0.9% 250 ML IRRIGATION PRN; -HEPARIN SODIUM,PORCINE 2,500 UNIT in SODIUM CHLORIDE 0.9% 250 ML IRRIGATION PRN; -NITROGLYCERIN SL TABS 0.4 MG TAB SUBLINGUAL PRN; -SODIUM CHLORIDE 0.9% 1,000 ML in EMPTY BAG 1 BAG IV ONE; +ZOLPIDEM 5 MG TAB PO PRN
[2024-01-28] MEDS: SODIUM CHLORIDE 0.9% 1,000 ML IV ONE (09:38)
[2024-01-28] MEDS: ALPRAZolam 0.5 MG TAB PO PRN (09:59)
[2024-01-28 10:06] VITALS: RESP 16; TEMP 97.8
[2024-01-28 10:10] LABS: Basophils # (A) 0.1 k/uL (0-0.2); Basophils % (A) 1 %; Eosinophils # (A) 0.2 k/uL (0-0.7); Eosinophils % (A) 3 %; Lymphocytes # (A) 1.6 k/uL (1.0-4.8); Lymphocytes % (A) 18 %; MCH 31.1 pg (25.0-35.0); MCHC 32.5 g/dL (31.0-37.0); MCV 95.7 fL (80.0-100.0); Mean Platelet Volume 6.7; Monocytes # (A) 0.5 k/uL (0-1.0); Monocytes % (A) 5 %; Neutrophils # (A) 6.7 k/uL (1.3-7.7); Neutrophils % (A) 72 %; Platelet Count 325 k/uL (150-450); RBC 4.49 m/uL (3.80-5.40); RDW 13.7 % (11.5-15.5); WBC 9.3 k/uL (3.8-10.6)
[2024-01-28 10:16] LABS: Potassium 4.6 mmol/L (3.5-5.1)
[2024-01-28 10:18] LABS: African American GFR (CKD) 80 (>60 ml/min/1.73 sqM); Anion Gap 7 mmol/L; Blood Urea Nitrogen 21 mg/dL (7-17); Calcium 10.5 mg/dL (8.4-10.2); Carbon Dioxide 25 mmol/L (22-30); Chloride 104 mmol/L (98-107); Glucose 108 mg/dL (74-99); Non-African American GFR(CKD) 69 (>60 ml/min/1.73 sqM); Sodium 136 mmol/L (137-145)
[2024-01-28] MEDS: LIDOCAINE 1% INJ 10MG/ML (20 ML MDV) SQ ONE (11:36)
[2024-01-28] MEDS: MIDAZOLAM 2 MG/2 ML VIAL IVP ONE (11:38)
[2024-01-28] MEDS ORDERED: fentaNYL (PF) 50 MCG/ML 2 ML AMP ONE (11:39)
[2024-01-28] MEDS: fentaNYL (PF) 50 MCG/ML 2 ML AMP IVP ONE (11:41)
[2024-01-28] MEDS: IOPAMIDOL-370 100ML BTL INJ ONE (11:47)
[2024-01-28] MEDS ORDERED: RX INFO: IV CONTRAST WAS GIVEN 1 EACH MISC MISCELLANE PRN (11:50)
--- NOTE | 2024-01-28 11:53 | P.PCN ---
Date of Procedure: 01/28/24 Operative Findings: AN ABDOMINAL AORTOGRAM AND BILATERAL LOWER EXTREMITIES RUNOFF PERFORMING PHYSICIAN: Jonathon Whalen MD PROCEDURE PERFORMED: 1. An abdominal aortogram 2. Bilateral lower extremities runoff 3. Ultrasound-guided access of the right common femoral artery INDICATION: Symptomatic 78-year-old female patient with abnormal arterial duplex study COMPLICATION: None LEVEL OF SEDATION: Moderate was sedation length of moderate to sedation length of 11 minutes APPROACH: Right common femoral artery PROCEDURE DESCRIPTION: After obtaining informed consent and explaining the procedure benefits, risks, and complications, the patient was brought to the cardiac laboratory manager. The right groin was prepped and draped in sterile fashion. The right common femoral artery was cannulated using micropuncture technique, under ultrasound guidance. A micropuncture wire was advanced, and the micropuncture sheath was advanced over the wire, then the micropuncture sheath was exchanged over an 0.35 wire into a 5-Fijian sheath dilator assembly then the wire and dilator were removed and sheath was flushed. We did an abdominal aortogram and bilateral lower extremities runoff using 5- Fijian pigtail catheter using a power injection. The catheter was initially placed at the level of the renal arteries, and it was pulled into above the bifurcation of the aorta into right and left common iliac arteries. The procedure was completed and there was no complications. SELECTIVE PERIPHERAL ANGIOGRAM: The abdominal aorta: Is angiographically normal The common iliac arteries: Are angiographically normal The external iliac arteries: Are angiographically normal The internal iliac arteries: Are patent The common femoral arteries: Have mild disease only Superficial femoral arteries: The left SFA is occluded/subtotally occluded in the proximal to midportion Popliteal arteries: Are angiographically Below the knees: Three-vessel runoff below the knee bilaterally CONCLUSION: Occluded/subtotally occluded left SFA POSTPROCEDURE MANAGEMENT: VP PLATFORMS VP PLATFORMS
[2024-01-28] MEDS ORDERED: SODIUM CHLORIDE 0.9% 1,000 ML IV SCH (12:00)
[2024-01-28] MEDS: HYDROcodone/APAP 7.5-325MG 1 EACH TAB PO PRN (15:20)
[2024-01-28 17:27] VITALS: BP 139/73; PULSE 56
--- NOTE | 2024-02-17 22:41 | IR ---
EXAMINATION TYPE: IR angio abdominal w runoff DATE OF EXAM: 01/28/2024 12:23 PM COMPARISON: Pre Operative Images if available both CT/MRI or plain film CLINICAL INDICATION: Female, 78 years old with history of left leg pain, 1.8 min fluoro, 32.1Gycm2; TECHNIQUE: IR angio abdominal w runoff, multiple fluoroscopic images provided for procedure. Total fluoroscopy time: 1.8 min Total submitted images to PACS: 123 DAP: 3.67 mGym2 Gycm2 uGym2 cGycm2 or equivalent. IMPRESSION: 1. Report was generated for administrative purposes only. 2. Please see the operative/procedural note for further details. [facility], , 02/17/2024 10:39 PM
== END 2024-01-28 17:12 | disposition home or self-care (01) ==
LOC: CATHCVL 09:30
PROVIDERS: ATTEND Internal Medicine Interventional Cardiology
DX: I70.213 Atherosclerosis of native arteries of extremities with intermittent claudication, bilateral legs
CPT/HCPCS: 36200; 75625; 75716; 80048; 85025

== ENCOUNTER 2024-02-26 10:08 | Day surgery (SDC) | payer MEDICARE, OTHER ==
[~2024-02-26 10:08] MED LIST changes: +ALPRAZolam 0.5 MG TAB PO PRN; -ASPIRIN 325 MG TAB PO PRN; -EMPTY BAG 1 BAG with SODIUM CHLORIDE 0.9% 1,000 ML IV SCH
[2024-02-26] MEDS: SODIUM CHLORIDE 0.9% 1,000 ML IV ONE (10:23)
[2024-02-26 10:46] LABS: Basophils % (A) 0 %; Eosinophils # (A) 0.2 k/uL (0-0.7); Eosinophils % (A) 2 %; HCT 42.9 % (34.0-46.0); HGB 14.5 gm/dL (11.4-16.0); Lymphocytes # (A) 2.3 k/uL (1.0-4.8); Lymphocytes % (A) 25 %; MCH 31.4 pg (25.0-35.0); MCHC 33.7 g/dL (31.0-37.0); MCV 93.1 fL (80.0-100.0); Monocytes # (A) 0.4 k/uL (0-1.0); Monocytes % (A) 4 %; Neutrophils # (A) 6.1 k/uL (1.3-7.7); Neutrophils % (A) 66 %; Platelet Count 348 k/uL (150-450); RBC 4.61 m/uL (3.80-5.40); RDW 14.2 % (11.5-15.5); WBC 9.3 k/uL (3.8-10.6)
[2024-02-26 10:54] LABS: African American GFR (CKD) 75 (>60 ml/min/1.73 sqM); Anion Gap 4 mmol/L; Blood Urea Nitrogen 18 mg/dL (7-17); Carbon Dioxide 27 mmol/L (22-30); Chloride 106 mmol/L (98-107); Glucose 103 mg/dL (74-99); Non-African American GFR(CKD) 65 (>60 ml/min/1.73 sqM); Potassium 4.6 mmol/L (3.5-5.1); Sodium 137 mmol/L (137-145)
[2024-02-26] MEDS: HYDROmorphone 1 MG/ML 1 ML SYRINGE IVP ONE (12:29)
[2024-02-26] MEDS: MIDAZOLAM 2 MG/2 ML VIAL IVP ONE ×2 (12:38→13:09)
[2024-02-26] MEDS: LIDOCAINE 1% INJ 10MG/ML (20 ML MDV) SQ ONE (12:41)
[2024-02-26] MEDS: HEPARIN SODIUM 1,000 UN/ML (10ML VL) IVP ONE (12:48)
[2024-02-26] MEDS: NITROGLYCERIN 1000MCG/10ML SYRINGE INTRAARTER ONE (13:22)
[2024-02-26] MEDS: niCARdipine Syringe (1,000 mcg/10 mL) INTRAARTER ONE (13:22)
[2024-02-26] MEDS: CLOPIDOGREL 75 MG TAB PO ONE (13:33)
[2024-02-26] MEDS ORDERED: HYDROcodone/APAP 7.5-325MG 1 EACH TAB PO PRN (13:37)
[2024-02-26] MEDS ORDERED: NALOXONE 0.4 MG/ML 1 ML VIAL IVP PRN (13:38)
[2024-02-26] MEDS: IOPAMIDOL-250 100ML BTL INTRAARTER ONE (13:44)
[2024-02-26] MEDS: EMPTY BAG 1 BAG with SODIUM CHLORIDE 0.9% 1,000 ML IV SCH (16:43)
[2024-02-26] MEDS: SODIUM CHLORIDE 0.9% 500 ML 500 ML with niCARdipine 6.25 MG, NITROGLYCERIN-D5W PMX 0.05... IV ONE (16:44)
[2024-02-26] MEDS: SODIUM CHLORIDE 0.9% 1,000 ML in EMPTY BAG 1 BAG IV SCH (16:44)
--- NOTE | 2024-02-26 18:23 | IR ---
EXAMINATION TYPE: IR clam dredge boat captain femoral popliteal DATE OF EXAM: 02/26/2024 FLUOROSCOPY left leg pain, 15.8 min fluoro, 32.5Gycm2. 500 images submitted. [facility], , 02/26/2024 6:21 PM
[2024-02-26] MEDS: cilostazoL 100 MG TAB PO SCH (20:09)
[2024-02-26] MEDS: ASPIRIN 81 MG PO SCH (20:11)
[2024-02-26] MEDS: ATORVASTATIN 80 MG TAB PO SCH (20:11)
[2024-02-26] MEDS: CALCIUM CARB-VIT D 500 MG-5 MCG TAB PO SCH (20:11)
[2024-02-26] MEDS: HYDROmorphone 0.5 MG/0.5 ML SYRINGE IVP PRN (20:18)
[2024-02-27 07:08] LABS: African American GFR (CKD) >90 (>60 ml/min/1.73 sqM); Non-African American GFR(CKD) 80 (>60 ml/min/1.73 sqM)
[2024-02-27 07:18] VITALS: BP 126/64; PULSE 75; RESP 15; TEMP 98.6
[2024-02-27] MEDS: SPIRONOLACTONE 25 MG TAB PO SCH (08:39)
[2024-02-27] MEDS: lisinopriL 5 MG TAB PO SCH (08:39)
[2024-02-27] MEDS: METOPROLOL SUCCINATE (ER) 25 MG TAB.ER.24H PO SCH (08:39)
[2024-02-27] MEDS: CLOPIDOGREL 75 MG TAB PO SCH (08:39)
[2024-02-27] MEDS: MULTIVITAMINS, THERA 1 EACH TAB PO SCH (08:39)
[2024-02-28] MEDS ORDERED: ERGOCALCIFEROL 1,250 MCG (50,000 IU) CAPSULE PO SCH (09:00)
--- NOTE | 2024-02-28 20:27 | P.PCN ---
Date of Procedure: 02/19/24 Operative Findings: . Percutaneous peripheral arterial intervention Performing physician MD [place] Procedure performed 1. Successful balloon angioplasty of the left SFA with adjunctive use of orbital atherectomy and IVUS and also in gradient measurement and IVUS of the left external iliac artery 2. Left lower extremity angiogram and right common femoral artery angiogram 3. Ultrasound-guided access of the right common femoral artery Indication Symptomatic 78-year-old female patient with left lower extremity intermittent claudication interfering with her daily activities for the patient cannot walk more than 200 feet without discomfort and abnormal and it is here duplex study as well as angiogram showing occluded left SFA Approach Right common femoral artery Complications None Level of sedation Moderate with sedation length of about 42 minutes Procedure description Obtaining informed consent the patient was brought to the cardiac Can Bander Operator. The right common femoral artery was cannulated using micropuncture technique under ultrasound guidance the micropuncture wire passed easily then I placed a 6 Senegalese 55 cm sheath at the right common femoral artery. Subsequently anticoagulation was initiated using heparin with continuous ACT monitoring. Going up and over to the left common femoral artery was performed using 5 Senegalese rim catheter with 035 stiff Glidewire. Sheath was advanced over the catheter and the wire to the left common femoral artery. Left lower extremity angiogram was performed and showed occluded left SFA. Crossing the STOVE INSTALLER of the SFA was performed using all [address] wire with a backup support of: 8 CXI catheter. Subsequently intravascular ultrasound was performed and showed a calcified artery with diameter around 5 mm. Atherectomy was performed using the CSI and using 1.5 mm shae. All angioplasty after that was performed using 5 mm Cornelia balloon before I did 5 mm drug-coated balloon. Final angiogram showing excellent angiographic results and the procedure was completed with no complication. By the end I did a gradient measurement of the left external iliac artery and also IVUS of the left external iliac artery and both came in to be none hemodynamically significant. After that I did exchange my long sheath into short sheath using a 3 5 stiff Glidewire before I did selective right common femoral artery angiogram Postprocedure management Dual antiplatelet therapy Risk factors modifications Follow-up with the patient
--- NOTE | 2024-02-28 20:28 | P.DS ---
Providers Attending physician: Jonathon Whalen Primary care physician: [facility] Course: The patient is a pleasant 78-year-old female patient who underwent on Thursday successful angioplasty of the left SFA from right common femoral artery approach She was seen and evaluated on February 26 in the morning. She was asymptomatic and hemodynamically stable. She has a good left dorsalis pedis pulse and the right groin is soft and nontender with no bruises The patient is going to be discharged home on dual antiplatelet therapy and I will follow-up with the patient next week in the office Plan - Discharge Summary Discharge Rx Participant: No New Discharge Prescriptions: Continue Spironolactone [Aldactone] 25 mg PO QAM Atorvastatin [Lipitor] 80 mg PO HS Multivitamins, Thera [Multivitamin (formulary)] 1 tab PO DAILY Aspirin [Adult Low Dose Aspirin EC] 81 mg PO HS HYDROcodone/APAP 7.5-325MG [[place] 7.5-325] 1 tab PO Q4H PRN PRN Reason: Pain cilostazoL 100 mg PO BID lisinopriL [Zestril] 5 mg PO DAILY Metoprolol Succinate (ER) [Toprol XL] 25 mg PO DAILY Nature's Bounty Calcium 1 tab PO BID Ergocalciferol [Vitamin D2 (1250 Mcg = 07771 Iu)] 50,000 mcg PO Q7DAYS Clopidogrel [Plavix] 37.5 mg PO DAILY Discharge Medication List Atorvastatin [Lipitor] 80 mg PO HS 04/04/15 [History] Multivitamins, Thera [Multivitamin (formulary)] 1 tab PO DAILY 04/04/15 [History] Spironolactone [Aldactone] 25 mg PO QAM 04/04/15 [History] Aspirin [Adult Low Dose Aspirin EC] 81 mg PO HS 09/24/20 [History] HYDROcodone/APAP 7.5-325MG [[place] 7.5-325] 1 tab PO Q4H PRN 10/01/20 [History] Ergocalciferol [Vitamin D2 (1250 Mcg = 27950 Iu)] 50,000 mcg PO Q7DAYS 09/30/23 [History] Metoprolol Succinate (ER) [Toprol XL] 25 mg PO DAILY 09/30/23 [History] Nature's Bounty Calcium 1 tab PO BID 09/30/23 [History] lisinopriL [Zestril] 5 mg PO DAILY 09/30/23 [History] Clopidogrel [Plavix] 37.5 mg PO DAILY 01/25/24 [History] cilostazoL 100 mg PO BID 02/23/24 [History] Follow up Appointment(s)/Referral(s): Jonathon Whalen MD [STAFF PHYSICIAN] - 03/02/24 3:30 pm (FOLLOW UP APPOINTMENT WAS ALREADY MADE. ) Patient Instructions/Handouts: Moderate Sedation (DC), Peripheral Vascular Angioplasty (DC), Peripheral Vascular Stent Placement (DC) Discharge Disposition: HOME SELF-CARE
== END 2024-02-27 11:33 | disposition home or self-care (01) ==
LOC: CATHCVL 10:08 → 6NMEDSUR 13:33 → CATHCVL 02-27 11:33
PROVIDERS: ATTEND Internal Medicine Interventional Cardiology
CPT/HCPCS: 37225; 37252; 80048; 82565; 85025

== ENCOUNTER 2024-03-09 09:32 | Inpatient (IN) | payer MEDICARE, OTHER ==
[2024-03-04 09:12] VITALS: BMI 33.5
[2024-03-09] MEDS: EMPTY BAG 1 BAG with SODIUM CHLORIDE 0.9% 1,000 ML IV SCH (10:36)
[2024-03-09] MEDS: IV FLUID CONTINUATION 1,000 ML IV ONE (10:45)
[2024-03-09 10:56] LABS: Basophils % (A) 0 %; Eosinophils # (A) 0.3 k/uL (0-0.7); Eosinophils % (A) 3 %; HCT 43.2 % (34.0-46.0); HGB 14.3 gm/dL (11.4-16.0); Lymphocytes # (A) 2.3 k/uL (1.0-4.8); Lymphocytes % (A) 23 %; MCH 30.9 pg (25.0-35.0); MCV 93.7 fL (80.0-100.0); Mean Platelet Volume 6.7; Monocytes # (A) 0.5 k/uL (0-1.0); Monocytes % (A) 4 %; Neutrophils % (A) 68 %; Platelet Count 357 k/uL (150-450); RBC 4.61 m/uL (3.80-5.40); RDW 14.3 % (11.5-15.5); WBC 10.3 k/uL (3.8-10.6)
[2024-03-09 11:06] LABS: African American GFR (CKD) 82 (>60 ml/min/1.73 sqM); Anion Gap 5 mmol/L; Blood Urea Nitrogen 17 mg/dL (7-17); Calcium 9.7 mg/dL (8.4-10.2); Carbon Dioxide 26 mmol/L (22-30); Chloride 106 mmol/L (98-107); Glucose 98 mg/dL (74-99); Non-African American GFR(CKD) 71 (>60 ml/min/1.73 sqM); Potassium 4.6 mmol/L (3.5-5.1); Sodium 137 mmol/L (137-145)
[2024-03-09] MEDS: fentaNYL (PF) 50 MCG/ML 2 ML AMP IVP ONE (14:00)
[2024-03-09] MEDS: MIDAZOLAM 2 MG/2 ML VIAL IVP ONE ×2 (14:00→14:53)
[2024-03-09] MEDS: LIDOCAINE 1% INJ 10MG/ML (20 ML MDV) SQ ONE (14:05)
[2024-03-09] MEDS: HEPARIN SODIUM 1,000 UN/ML (10ML VL) IV ONE (14:14)
[2024-03-09] MEDS: NITROGLYCERIN 1000MCG/10ML SYRINGE INTRACORON ONE (14:59)
[2024-03-09] MEDS: niCARdipine Syringe (1,000 mcg/10 mL) INTRACORON ONE (14:59)
[2024-03-09] MEDS ORDERED: NALOXONE 0.4 MG/ML 1 ML VIAL IVP PRN (15:03)
[2024-03-09] MEDS: IOPAMIDOL-370 100ML BTL INJ ONE (15:03)
[2024-03-09] MEDS: HEPARIN SODIUM,PORCINE 10,000 UNIT in SODIUM CHLORIDE 0.9% 1,000 ML IRRIGATION PRN (15:05)
[2024-03-09] MEDS: HEPARIN SODIUM,PORCINE (1 ML) 2,500 UNIT in SODIUM CHLORIDE 0.9% 250 ML IRRIGATION PRN (15:05)
--- NOTE | 2024-03-09 15:08 | P.PCN ---
Date of Procedure: 03/09/24 Operative Findings: PERCUTANEOUS PERIPHERAL INTERVENTION Performing physician Jonathon Whalen M.D. Procedure performed 1. Successful balloon angioplasty and stenting of the right SFA with adjunctive use of IVUS and lithotripsy balloon and atherectomy 2. Right lower extremity angiogram and left common femoral artery angiogram and ultrasound-guided access of the left common femoral artery Indication Symptomatic 72-year-old female patient who is known to have critical disease involving the right SFA Approach Left common femoral artery Complications None Level of sedation Moderate with a sedation time of 57 minutes Procedure description After obtaining informed consent the patient was brought to the cardiac Corncob Pipe Supervisor. The left common femoral artery was cannulated using micropuncture technique under ultrasound guidance a micropuncture wire passed easily then I placed a 6 Central African 70 cm at the left common femoral artery. Subsequently I did advance a rim catheter to the aorta over 035 wire and I did advance the wire to the right SFA. Subsequently the sheath was advanced over the wire and the catheter to the right common femoral artery. Right lower extremity angiogram was performed and showed critical disease involving the right SFA. I did cross the SFA using a 1 4 wire and subsequently I did IVUS which showed heavily calcified vessel with a diameter around 5 mm. I did atherectomy using the Hawk 1 device with extraction of large black. Subsequently balloon angioplasty was performed using lithotripsy balloon and that was 5 mm balloon. An angiogram was performed and showed adequate angiographic results in the proximal SFA but not in the mid SFA which I decided to stent and I deployed a 6.0 x 100 mm Zilver PTX drug-coated stent where the stent was positioned under fluoroscopy guidance and deployed under fluoroscopy guidance and subsequently postdilated using 5 mm balloon. For the proximal SFA I did drug-coated balloon with a final angiogram showing excellent angiographic results and the procedure was completed with no complication. Subsequently I did exchange my long sheath into short sheath using 035 wire before I did selective left common femoral artery angiogram Postprocedure management 1. Dual antiplatelet therapy 2. Aggressive cholesterol control 3. Risk factors modification 4. Follow-up with the patient
[2024-03-09] MEDS: HYDROmorphone 1 MG/ML 1 ML SYRINGE IVP PRN (15:35)
--- NOTE | 2024-03-09 15:44 | IR ---
EXAMINATION TYPE: IR angio extremity RT DATE OF EXAM: 03/09/2024 3:16 PM COMPARISON: Pre Operative Images if available both CT/MRI or plain film CLINICAL INDICATION: Female, 78 years old with history of RLE ANGIOGRAM, 14.2 MINS FLT, 0.102 GY; TECHNIQUE: IR angio extremity RT, multiple fluoroscopic images provided for procedure. Total fluoroscopy time: 14.2 seconds Total submitted images to PACS: 96 DAP: 23.6 mGym2 Gycm2 uGym2 cGycm2 or equivalent. FINDINGS: IMPRESSION: 1. Report was generated for administrative purposes only. 2. Please see the operative/procedural note for further details. [facility], , 03/09/2024 3:41 PM
[2024-03-09] MEDS: HYDROcodone/APAP 7.5-325MG 1 EACH TAB PO PRN (17:45)
[2024-03-09] MEDS: SODIUM CHLORIDE 0.9% 1,000 ML in EMPTY BAG 1 BAG IV SCH (20:47)
[2024-03-09] MEDS: ZOLPIDEM 5 MG TAB PO PRN (20:52)
[2024-03-09] MEDS: ASPIRIN 81 MG PO SCH (20:52)
[2024-03-09] MEDS: ATORVASTATIN 80 MG TAB PO SCH (20:52)
[2024-03-09] MEDS: CALCIUM CARBONATE 500 MG CHEWABLE PO SCH (20:55)
[2024-03-09] MEDS: ALPRAZolam 0.5 MG TAB PO PRN (23:15)
[2024-03-10] MEDS: CLOPIDOGREL 75 MG TAB PO SCH (09:09)
[2024-03-10] MEDS: SPIRONOLACTONE 25 MG TAB PO SCH (09:09)
[2024-03-10] MEDS: MULTIVITAMINS, THERA 1 EACH TAB PO SCH (09:09)
[2024-03-10] MEDS: METOPROLOL SUCCINATE (ER) 25 MG TAB.ER.24H PO SCH (09:09)
[2024-03-10] MEDS: lisinopriL 5 MG TAB PO SCH (09:09)
--- NOTE | 2024-03-10 09:17 | US ---
EXAMINATION TYPE: US lower ext pseudo artery LT DATE OF EXAM: 03/10/2024 COMPARISON: NONE CLINICAL INDICATION: Female, 78 years old with history of HEMATOMA VERSE PSEUDOANEURYSM; Had stent pl acement in left groin area yesterday. TECHNIQUE:: Grayscale, color Doppler and spectral Doppler imaging performed of the groin, post cardia c catheter to assess for pseudoaneurysm. FINDINGS: SIDE PERFORMED: Left Color and Waveform Doppler performed to assess for the presence of pseudoaneurysm; Is there ultrasound evidence of a pseudoaneurysm: yes Is there evidence of AV shunting: no Is there a fluid collection present: no Appears to be a pseudoaneurysm seen in left groin measuring 2.2 x 1.2 cm. IMPRESSION: Pseudoaneurysm as noted above. [facility], , 03/10/2024 9:14 AM
[2024-03-10] MEDS: ALPRAZolam 0.25 MG TAB PO PRN (10:31)
[2024-03-10] MEDS: HYDROmorphone 0.5 MG/0.5 ML SYRINGE IVP ONE (11:14)
--- NOTE | 2024-03-10 13:30 | US ---
EXAMINATION TYPE: US compress pseudoaneurysm LT DATE OF EXAM: 03/10/2024 COMPARISON: 03/10/2024 earlier today CLINICAL INDICATION: Female, 78 years old with history of left groin pseudoaneurysm; TECHNIQUE AND FINDING: Grayscale, color Doppler and spectral Doppler imaging performed of the groin, post cardiac catheter t o assess for pseudoaneurysm. The patient's pseudoaneurysm is again identified. This measured 2.2 x 1.2 cm on transverse imaging wi th a 5 mm neck noted on the ultrasound earlier today. Utilizing sterile technique and direct ultrasound guidance for the duration of the procedure, firm di rect pressure was applied to the neck of the pseudoaneurysm. Pressure was applied continuously for 35 minutes with ultrasound guidance. During the latter half of the time block, no color flow was identified within the pseudoaneurysm itse lf. There is possible persistence of a small neck measuring 3 mm for the duration. However, after gradual release of compression at the end of 35 minutes, the neck is not clearly seen. The pseudoaneurysm measures 2.5 cm without any internal color flow demonstrated. Distal pulses within the anterior and posterior tibial arteries were demonstrated by doppler through the procedure. IMPRESSION: 35 minutes of direct pseudoaneurysm neck compression under ultrasound guidance. No color flow identif ied within the 2.5 cm pseudoaneurysm. After gradually release of compression, the neck is also not id entified. Follow-up ultrasound in the morning to reassess. Distal pulses (AT/PT) were monitored thro h the procedure. [facility], , 03/10/2024 1:28 PM
[2024-03-10] MEDS: HYDROmorphone 2 MG/ML 1 ML SYRINGE IVP PRN (17:38)
--- NOTE | 2024-03-11 08:25 | P.PN ---
Subjective Progress Note Date: 03/11/24 The patient is a pleasant 78-year-old female patient with a past medical history significant for lower extremities PAD who was admitted to the hospital the day before yesterday and underwent MARKETING PERFORMANCE ANALYST of the right femoral artery from left groin approach. Unfortunately during the procedure and because of left knee pain she was bending her knee. Postprocedure she developed pseudoaneurysm appears to be at small size and interventional radiology consulted yesterday and did compression of the pseudoaneurysm and duplex ultrasound was repeated today and still pending. March 11, 2024 She was seen and evaluated this morning. She seems to be feeling somewhat better but continues to have left groin tenderness and extensive bruises. The ultrasound is still pending. Will follow-up on the ultrasound. Also I am going to consult Dr. Lenz the patient's primary care physician for medical management. If the ultrasound came in to be unremarkable the patient potentially can be discharged later on today. She reports no symptoms of any chest pain or chest discomfort or shortness of breath and she continues to be on dual antiplatelet therapy. 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 Lenz Objective - Vital Signs Vital signs: Vital Signs Temp 98.3 F 03/11/24 07:12 Pulse 77 03/11/24 07:55 Resp 17 03/11/24 07:55 BP 127/79 03/11/24 07:12 Pulse Ox 95 03/11/24 07:12 FiO2 Intake & Output 03/10/24 03/11/24 03/11/24 18:59 06:59 18:59 Intake Total 20 10 Balance 20 10 Weight 85.5 kg Intake: IV 20 10 Invasive Line 1 20 10 Other: Voiding Method External Catheter Toilet Toilet # Voids 2 1 # Bowel Movements 1 - Labs CBC & Chem 7: 03/09/24 10:23 03/09/24 10:23
--- NOTE | 2024-03-11 09:27 | US ---
EXAMINATION TYPE: US lower ext pseudo artery LT DATE OF EXAM: 03/11/2024 COMPARISON: 03/10/2024 CLINICAL INDICATION: Female, 78 years old with history of post psuedoaneursym compression; TECHNIQUE:: Grayscale, color Doppler and spectral Doppler imaging performed of the groin, post cardia c catheter to assess for pseudoaneurysm. FINDINGS: SIDE PERFORMED: Left Color and Waveform Doppler performed to assess for the presence of pseudoaneurysm; Is there ultrasound evidence of a pseudoaneurysm: ? Is there evidence of AV shunting: No Is there a fluid collection present: ? Multiple hypoechoic areas seen within patients AOC - limited visualization due to swelling and bruisi ng. No blood flow seen within hypoechoic areas. IMPRESSION: No flow is seen within previously compressed pseudoaneurysm. [facility], , 03/11/2024 7:58 AM
--- NOTE | 2024-03-11 16:30 | P.CONS ---
History of Present Illness - Reason for Consult Consult date: 03/11/24 Medical management - Chief Complaint Lower extremity PAD - History of Present Illness 78-year-old female patient with a past medical history significant for lower extremities PAD who was admitted to the hospital the day before yesterday and underwent MARKETER of the right femoral artery from left groin approach. Unfortunately during the procedure and because of left knee pain she was bending her knee. Postprocedure she developed pseudoaneurysm appears to be at small size and interventional radiology consulted yesterday and did compression of the pseudoaneurysm and duplex ultrasound was repeated today and still pending. She seems to be feeling somewhat better but continues to have left groin tenderness and extensive bruises. Patient has been evaluated by cardiology and is recommended to obtain an ultrasound. Will follow-up on the ultrasound. She reports no symptoms of any chest pain or chest discomfort or shortness of breath and she continues to be on dual antiplatelet therapy. Past Medical History Past Medical History: Cancer, Hyperlipidemia, Hypertension, Musculoskeletal Disorder, Osteoarthritis (OA), Vascular Disorder Additional Past Medical History / Comment(s): Chronic back pain. recent stress test, right foot arthritis, hx. skin cancer. PAD, blockage to left leg per pt. History of Any Multi-Drug Resistant Organisms: None Reported Past Surgical History: Bariatric Surgery, Heart Catheterization With Stent, Joint Replacement, Orthopedic Surgery Additional Past Surgical History / Comment(s): Lap band. denise. knee replacements. Bilateral carpal tunnel. Panniculectomy 10/31/15, denise. cataracts removed. stent x2 (2021,2023) Left fem-pop angioplasty 02/26/24 Past Anesthesia/Blood Transfusion Reactions: No Reported Reaction Additional Past Anesthesia/Blood Transfusion Reaction / Comm: BP dropped very low w/last knee replacement 2022 Date of Last Stent Placement:: 09/2023 Smoking Status: Current every day smoker - Past Family History Mother Additional Family Medical History / Comment(s): breast cancer. Grandmother , DVT Medications and Allergies Home Medications Medication Instructions Recorded Confirmed Type Atorvastatin [Lipitor] 80 mg PO HS 04/04/15 03/09/24 History Multivitamins, Thera [Multivitamin 1 tab PO DAILY 04/04/15 03/09/24 History (formulary)] Spironolactone [Aldactone] 25 mg PO QAM 04/04/15 03/09/24 History Aspirin [Adult Low Dose Aspirin EC] 81 mg PO HS 09/24/20 03/09/24 History HYDROcodone/APAP 7.5-325MG [[place] 1 tab PO Q4H PRN 10/01/20 03/09/24 History 7.5-325] Ergocalciferol [Vitamin D2 (1250 50,000 mcg PO Q7DAYS 09/30/23 03/09/24 History Mcg = [id number] Iu)] Metoprolol Succinate (ER) [Toprol 12.5 mg PO DAILY 09/30/23 03/09/24 History XL] lisinopriL [Zestril] 5 mg PO DAILY 09/30/23 03/09/24 History Clopidogrel [Plavix] 75 mg PO DAILY 01/25/24 03/09/24 History Calcium Carbonate [Calcium] 600 mg PO BID 03/04/24 03/09/24 History Allergies Allergy/AdvReac Type Severity Reaction Status Date / Time latex Allergy Rash/Hives Verified 03/09/24 10:28 nickel Allergy Rash/Hives Verified 03/09/24 10:28 Physical Exam Vitals: Vital Signs Temp Pulse Resp BP BP BP Pulse Ox 03/11/24 11:05 98.2 F 71 16 111/64 95 03/11/24 09:17 17 03/11/24 07:55 77 17 03/11/24 07:12 98.3 F 77 17 127/79 95 03/11/24 03:48 98.2 F 73 17 108/53 97 03/10/24 23:55 98.2 F 74 16 112/64 95 03/10/24 19:40 97.5 F L 68 20 124/73 96 03/10/24 15:25 98.2 F 64 16 119/60 97 03/10/24 14:00 64 16 03/10/24 12:45 62 16 119/72 96 03/10/24 12:30 60 16 110/70 97 Intake and Output 03/10/24 03/11/24 03/11/24 22:59 06:59 14:59 Intake Total 10 10 10 Balance 10 10 10 Intake: IV 10 10 10 Invasive Line 1 10 10 10 Other: Voiding Method Toilet Toilet Toilet # Voids 1 1 2 # Bowel Movements 1 1 Weight 85.5 kg Results CBC & Chem 7: 03/09/24 10:23 03/09/24 10:23 Assessment and Plan Assessment: Lower extremities PAD 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
[2024-03-11 19:58] VITALS: BP 118/76; PULSE 65; RESP 16; TEMP 98.1
[2024-03-16] MEDS ORDERED: ERGOCALCIFEROL 1,250 MCG (50,000 IU) CAPSULE PO SCH (09:00)
== END 2024-03-11 21:00 | disposition home or self-care (01) | DRG 279 ==
LOC: CATHCVL 09:32 → 3SCARD 16:48 → CATHCVL 03-11 11:29
PROVIDERS: ADMIT Internal Medicine Interventional Cardiology; ATTEND Internal Medicine Interventional Cardiology
PROC: 04FK3ZZ Fragmentation of Right Femoral Artery, Percutaneous Approach (ICD-10-PCS; principal; 2024-03-11)
PROC: 047K3DZ Dilation of Right Femoral Artery with Intraluminal Device, Percutaneous Approach (ICD-10-PCS; 2024-03-11)
PROC: B44FZZ3 Ultrasonography of Right Lower Extremity Arteries, Intravascular (ICD-10-PCS; 2024-03-11)
PROC: B41G1ZZ Fluoroscopy of Left Lower Extremity Arteries using Low Osmolar Contrast (ICD-10-PCS; 2024-03-11)
PROC: B41F1ZZ Fluoroscopy of Right Lower Extremity Arteries using Low Osmolar Contrast (ICD-10-PCS; 2024-03-11)
DX: I72.8 Aneurysm of other specified arteries (principal); I70.291 Other atherosclerosis of native arteries of extremities, right leg; E78.5 Hyperlipidemia, unspecified; I10 Essential (primary) hypertension; G89.29 Other chronic pain; M54.9 Dorsalgia, unspecified; F17.210 Nicotine dependence, cigarettes, uncomplicated; M19.071 Primary osteoarthritis, right ankle and foot; Z79.02 Long term (current) use of antithrombotics/antiplatelets; Z79.82 Long term (current) use of aspirin; Z79.899 Other long term (current) drug therapy; Z80.3 Family history of malignant neoplasm of breast; Z85.828 Personal history of other malignant neoplasm of skin; Z96.653 Presence of artificial knee joint, bilateral; Z98.42 Cataract extraction status, left eye; Z98.41 Cataract extraction status, right eye; Z91.040 Latex allergy status; Z91.048 Other nonmedicinal substance allergy status
CPT/HCPCS: 37252; 76936; 80048; 85025; 93975